=== PATIENT | female | born 1965 | race Caucasian/White ===

== ENCOUNTER → 2017-08-21 | Outpatient (CLI) | payer OTHER ==
--- NOTE | 2017-08-21 13:12 | Diagnostic Imaging Report ---
PROCEDURE:ULTRASOUND GUIDANCE FOR PROCEDURE COMPARISON:None. INDICATIONS: Multiple Thyroid Nodules CONCLUSION: Please see the dictation of the thyroid biopsy for full clinical details. Dictated by: Jr Sanchez M.D. on 08/21/2017 at 13:22 Electronically approved by: Jr Sanchez M.D. on 08/21/2017 at 13:22
--- NOTE | 2017-08-21 13:12 | Diagnostic Imaging Report ---
PROCEDURE:ULTRASOUND GUIDANCE FOR PROCEDURE COMPARISON:None. INDICATIONS: Multiple Thyroid Nodules CONCLUSION: Please see the dictation of the thyroid biopsy for full clinical details. Dictated by: Jr Sanchez M.D. on 08/21/2017 at 13:21 Electronically approved by: Jr Sanchez M.D. on 08/21/2017 at 13:21
--- NOTE | 2017-08-21 13:13 | Diagnostic Imaging Report ---
PROCEDURE:FINE NEEDLE ASPIRATION COMPARISON:None. INDICATIONS:Multiple Thyroid Nodules FINDINGS: CONCLUSION:Please see the dictation of the thyroid biopsy for full clinical details. Dictated by: Jr Sanchez M.D. on 08/21/2017 at 13:23 Electronically approved by: Jr Sanchez M.D. on 08/21/2017 at 13:23
--- NOTE | 2017-08-21 13:27 | Diagnostic Imaging Report ---
PROCEDURE:BIOPSY THYROID FNA COMPARISON:Thyroid ultrasound 07/30/2017, from outside hospital. INDICATIONS:Multiple Thyroid Nodules FINDINGS: Written and verbal consent were obtained. Patient was placed supine. Focused sonographic evaluation of the neck was performed. Nodules were demonstrated in the isthmus and the left thyroid lobe. Safe approaches were determined. The neck was prepped and draped in the usual sterile fashion. Attention was directed towards the nodule in the isthmus. 1% lidocaine was infused into the subcutaneous tissues for local anesthesia. Utilizing direct sonographic guidance, fine needle aspiration biopsy samples were obtained with 25 gauge needles. Fine needle aspiration biopsies samples x6 were obtained with ultrasound guidance. The specimens were given to pathology, was at bedside. The pathologist determined the specimens to be of proper cellularity for diagnosis. Attention was directed towards the nodule in the left thyroid lobe. 1% lidocaine was infused into the subcutaneous tissues for local anesthesia. Utilizing direct sonographic guidance, fine needle aspiration biopsy samples were obtained with 25 gauge needles. Fine needle aspiration biopsies samples x6 were obtained with ultrasound guidance. The specimens were given to pathology, was at bedside. The pathologist determined the specimens to be of proper cellularity for diagnosis. Upon completion of the procedure, no hematoma was visualized. A sterile dressing was applied. The patient tolerated the procedure well, and there were no immediate post-procedural complications. CONCLUSION: Successful ultrasound-guided biopsy of a nodule in the isthmus of the thyroid. Successful ultrasound-guided biopsy of a nodule in the left lobe of the thyroid. Dictated by: Jr Sanchez M.D. on 08/21/2017 at 13:37 Electronically approved by: Jr Sanchez M.D. on 08/21/2017 at 13:37
== END ==
LOC: US 07:54
PROVIDERS: ATTEND Otolaryngology
DX: E04.2 Nontoxic multinodular goiter (principal)
CPT/HCPCS: 10022; 76942; 88112; 88172; 88173; 88305